=== PATIENT | female | born 1975 | race Caucasian/White ===

== ENCOUNTER 2016-05-28 04:56 | Emergency (ER) | payer MEDICAID ==
[~2016-05-28] VITALS: Ht 170.2 cm; Wt 81.8 kg
[~2016-05-28 04:56] MED LIST: ALPRAZOLAM0.25 MG PO; AMOXICILLIN 50500 MG PO; AMOXICILLIN500 MG PO; ATOMOXETINE; BCP TD; CEFTIN250 M1 PO; CHERATUSSIN AC120 ML PO; CIPRO 500MG TA500 MG PO; CLINDAMYCIN HC300 MG PO; CLINDAMYCIN300 MG PO; COMPAZINE 110 MG/TAB PO; CONCERTA18 MG PO; DEPO PROVER150 MG/ML IM; DILAUDID 2MG TAB2 MG PO; DILAUDID 4MG TAB4 MG PO; DOXYCYCLINE 10100 MG PO; FLEXERIL; FLEXERIL 1010 MG/TAB PO; HYDROCODONE/APAP PO; LAMICTAL 100MG100 MG PO; LAMICTAL CD25 MG PO; LAMICTAL25 MG PO; LEVAQUIN 5500 MG/TAB PO; LEVAQUIN 750MG750 M1 PO; LISDEXAMFETAMINE; LORTAB; LORTAB 10/500 51 TAB PO; LORTAB 7.5/5001 TAB PO; MAGIC MOUTH PO; METRONIDAZOLE500 MG PO; MOTRIN 400400 MG/TAB PO; MOTRIN 800800 MG/TAB PO; MS CONTIN 330 MG/TAB PO; MS CONTIN30 MG PO; NO HOME MEDICATIONS; NORCO 325 MG-51 TAB PO; PEN-VEE K500 MG PO; PERCOCET 5/321 UDTAB PO; PERIDEX 480 ML480 ML PO; PHENERGAN 25 TA25 MG PO; PHENERGAN W/CO120 ML PO; PREDNISONE20 MG PO; PRENATAL1 TA3; PYRIDIUM200 M1 PO; RITALIN 20M20 MG/TAB PO; SEROQUEL; SEROQUEL25 MG PO; SERTRALINE; TIZANIDINE HCL4 MG PO; TOPAMAX100 MG PO; TOPIRAMATE; TOPIRAMATE PO; TREXIMET; TRIAZOLAM; TYLENOL 500MG500 MG PO; ULTRAM 50MG TAB50 MG; ULTRAM 50MG TAB50 MG PO; ULTRAM50 MG PO; VYVANCE; WELLBUTRIN XL300 M1 PO; XANAX .25M0.25 MG/TA PO; XANAX0.25 MG PO; ZANAFLEX 4MG TAB4 MG PO; ZOFRAN 4MG T4 MG/TAB PO; ZOLOFT 100MG100 MG PO; antiinflammatory
[2016-05-28] MEDS ORDERED: ULTRAM 50MG TAB50 MG PO (05:29)
[2016-05-28 06:21] VITALS: BP 115/80; PULSE 72; TEMP 98.1
[2016-10-30] MEDS ORDERED: PREDNISONE20 MG PO (07:08)
== END 2016-05-28 06:27 | disposition home or self-care (01) ==
LOC: COL.ER 04:56
DX: J06.9 Acute upper respiratory infection, unspecified (principal)
CPT/HCPCS: J1885

== ENCOUNTER 2016-06-15 18:03 | Emergency (ER) | payer MEDICAID ==
[~2016-06-15] VITALS: Ht 170.2 cm; Wt 79.1 kg
[2016-06-15 18:06] VITALS: BP 133/95; TEMP 97.9
[2016-06-15] MEDS ORDERED: NORCO 325 MG-51 TAB PO (19:20)
[2016-06-15] MEDS ORDERED: FLEXERIL 1010 MG/TAB PO (19:20)
[2016-06-15 19:31] VITALS: PULSE 94
[2016-10-30] MEDS ORDERED: PREDNISONE20 MG PO (07:08)
== END 2016-06-15 19:32 | disposition home or self-care (01) ==
LOC: COL.ER 18:03
DX: S39.012A Strain of muscle, fascia and tendon of lower back, initial encounter (principal); X50.0XXA Overexertion from strenuous movement or load, initial encounter; M62.830 Muscle spasm of back
CPT/HCPCS: J3360

== ENCOUNTER → 2016-10-30 | Emergency (ER) | payer MEDICAID ==
[~2016-10-30] VITALS: Ht 170.2 cm; Wt 80.0 kg
[2016-10-30 06:29] VITALS: BP 124/74; PULSE 83; TEMP 97.5
== END ==
LOC: COL.ER 06:27
DX: G56.03 Carpal tunnel syndrome, bilateral upper limbs (principal)
CPT/HCPCS: J7512

== ENCOUNTER 2017-01-19 20:15 | Observation (INO) | payer MEDICAID ==
[~2017-01-19] VITALS: Ht 165.1 cm; Wt 77.3 kg
[2017-01-20 14:24] VITALS: BP 92/58; PULSE 89; TEMP 98.4
== END 2017-01-20 15:08 | disposition psychiatric hospital, planned readmission (93) ==
LOC: COL.ER 20:15 → MEDICAL 01-20 02:10
DX: F15.20 Other stimulant dependence, uncomplicated (principal); F90.9 Attention-deficit hyperactivity disorder, unspecified type; F31.9 Bipolar disorder, unspecified; N39.0 Urinary tract infection, site not specified
CPT/HCPCS: G0378

== ENCOUNTER 2017-04-03 09:27 | Emergency (ER) | payer MEDICAID ==
[~2017-04-03] VITALS: Ht 170.2 cm; Wt 79.5 kg
[2017-04-03 09:29] VITALS: BP 119/70; TEMP 97.6
[2017-04-03] MEDS ORDERED: WELLBUTRIN XL300 M1 PO (09:34)
[2017-04-03 10:56] VITALS: PULSE 83
[2017-04-03] MEDS ORDERED: ZOFRAN ODT4 MG PO (10:59)
== END 2017-04-03 10:58 | disposition home or self-care (01) ==
LOC: COL.ER 09:27
DX: S09.90XA Unspecified injury of head, initial encounter (principal); S16.1XXA Strain of muscle, fascia and tendon at neck level, initial encounter; G43.909 Migraine, unspecified, not intractable, without status migrainosus; F41.9 Anxiety disorder, unspecified; F31.9 Bipolar disorder, unspecified; F90.9 Attention-deficit hyperactivity disorder, unspecified type; F15.10 Other stimulant abuse, uncomplicated; Y04.2XXA Assault by strike against or bumped into by another person, initial encounter
CPT/HCPCS: J2550

== ENCOUNTER 2017-06-14 19:25 | Emergency (ER) | payer MEDICAID ==
[~2017-06-14] VITALS: Ht 170.2 cm; Wt 81.8 kg
[~2017-06-14 19:25] MED LIST changes: +ZOFRAN ODT4 MG PO
[2017-06-14 19:31] VITALS: BP 149/85; TEMP 98
[2017-06-14] MEDS ORDERED: BACTRIM DS 8001 TAB PO (20:54)
[2017-06-14] MEDS ORDERED: CEPHALEXIN500 M1 PO (20:54)
[2017-06-14 21:50] VITALS: PULSE 96
== END 2017-06-14 21:48 | disposition home or self-care (01) ==
LOC: COL.ER 19:25
DX: L03.114 Cellulitis of left upper limb (principal); F15.90 Other stimulant use, unspecified, uncomplicated; F32.9 Major depressive disorder, single episode, unspecified; F41.9 Anxiety disorder, unspecified; F17.200 Nicotine dependence, unspecified, uncomplicated

== ENCOUNTER 2017-07-02 09:24 | Emergency (ER) | payer MEDICAID ==
[~2017-07-02] VITALS: Ht 170.2 cm; Wt 77.3 kg
[~2017-07-02 09:24] MED LIST changes: +BACTRIM DS 8001 TAB PO; +CEPHALEXIN500 M1 PO
[2017-07-02 10:00] VITALS: BP 126/68; TEMP 97.5
[2017-07-02] MEDS ORDERED: PROAIR HFA0.09 MG/AC IH (11:54)
[2017-07-02 12:14] VITALS: PULSE 98
== END 2017-07-02 12:14 | disposition home or self-care (01) ==
LOC: COL.ER 09:24
DX: J98.8 Other specified respiratory disorders (principal); Z88.8 Allergy status to other drugs, medicaments and biological substances; Z98.818 Other dental procedure status

== ENCOUNTER → 2017-07-11 | Outpatient (CLI) | payer MEDICAID ==
[~2017-07-11] MED LIST changes: +PROAIR HFA0.09 MG/AC IH
== END ==
LOC: MC.RAD 06-09 07:40
DX: N63.21 Unspecified lump in the left breast, upper outer quadrant (principal)

== ENCOUNTER 2017-10-08 02:35 | Emergency (ER) | payer MEDICAID ==
[~2017-10-08] VITALS: Ht 170.2 cm; Wt 81.8 kg
[2017-10-08 02:38] VITALS: TEMP 98.2
[2017-10-08 03:06] LABS: COLLECTION METHOD CLEAN CATCH
[2017-10-08 03:11] LABS: BASO % 0.5 % (0.0-2.0); EOS # 0.2 (0.0-0.7); EOS % 2.9 % (0-4.0); GRAN # 3.3 (1.4-6.5); GRAN % 59.5 % (42.2-75.2); HEMOGLOBIN 12.2 g/dl (12.5-16.0); LYMPH # 1.7 (1.2-3.4); LYMPH % 30.1 % (20.0-51.0); MEAN CELL VOLUME 91 fl (80.0-100.0); MEAN CORPUSCULAR HEMOGLOBIN 30 pg (27.0-31.0); MEAN CORPUSCULAR HGB CONC 33 g/dl (33.0-37.0); MEAN PLATELET VOLUME 9.2 fl (7.4-10.4); MONO # 0.4 (0.1-0.6); MONO % 6.6 % (1.7-9.3); PLATELET COUNT 300 K/mm3 (130-400); RED BLOOD COUNT 4.09 M/mm3 (4.10-5.30); REDCELL DISTRIBUTION WIDTH-CV 12.6 % (11.5-14.5)
[2017-10-08 03:14] LABS: MUCOUS Present /lpf; PH 5 (5-8); SQUAMOUS EPITHELIAL 0-2 /hpf; URINE APPEARANCE Hazy; URINE BACTERIA None Seen /hpf; URINE BILIRUBIN Negative (NEGATIVE); URINE BLOOD Negative (NEGATIVE); URINE COLOR Yellow; URINE GLUCOSE Negative (NEGATIVE); URINE KETONE Negative (NEGATIVE); URINE LEUKOCYTE ESTERASE Trace (NEGATIVE); URINE NITRATE Negative (NEGATIVE); URINE PROTEIN(semi-quant) Negative (NEGATIVE); URINE UROBILINOGEN >=4.0 mg/dL (NEGATIVE)
[2017-10-08] MEDS ORDERED: AMBIEN 10MG10 MG PO (03:22)
[2017-10-08] MEDS ORDERED: WELLBUTRIN XL150 MG PO (03:22)
[2017-10-08 03:23] LABS: ALBUMIN 4.1 gm/dL (3.5-5.0); BILIRUBIN,TOTAL 0.8 mg/dL (0.0-1.0); C-REACTIVE PROTEIN 0.6 mg/dL (0.0-0.9); CREATININE, serum 0.77 mg/dL (0.52-1.25); POTASSIUM 3.6 mmol/L (3.4-5.0); TOTAL PROTEIN 7.1 gm/dL (6.4-8.2)
[2017-10-08] MEDS ORDERED: REVIA 50MG TABL50 MG PO (03:23)
[2017-10-08] MEDS ORDERED: LATUDA40 MG PO (03:23)
[2017-10-08] MEDS ORDERED: PHENERGAN 25 TA25 MG PO (05:06)
[2017-10-08 05:25] VITALS: BP 112/69; PULSE 81
== END 2017-10-08 05:25 | disposition home or self-care (01) ==
LOC: COL.ER 02:35
PROVIDERS: Emergency Medicine
DX: G43.909 Migraine, unspecified, not intractable, without status migrainosus (principal)
CPT/HCPCS: J0780; J1200; J1885; J7030

== ENCOUNTER 2018-01-06 14:13 | Emergency (ER) | payer MEDICAID ==
[~2018-01-06] VITALS: Ht 170.2 cm; Wt 90.9 kg
[~2018-01-06 14:13] MED LIST changes: +AMBIEN 10MG10 MG PO; +LATUDA40 MG PO; +REVIA 50MG TABL50 MG PO; +WELLBUTRIN XL150 MG PO
[2018-01-06 14:18] VITALS: BP 135/82; PULSE 100; TEMP 97.6
[2018-01-06 14:31] LABS: COLLECTION METHOD CLEAN CATCH
[2018-01-06 14:45] LABS: BUDDING YEAST Present /hpf; MUCOUS Present /lpf; PH 6 (5-8); URINE APPEARANCE Cloudy; URINE BACTERIA Rare /hpf; URINE BILIRUBIN Negative (NEGATIVE); URINE BLOOD 1+ (NEGATIVE); URINE COLOR Yellow; URINE GLUCOSE Negative (NEGATIVE); URINE KETONE Negative (NEGATIVE); URINE LEUKOCYTE ESTERASE 3+ (NEGATIVE); URINE NITRATE Positive (NEGATIVE); URINE PROTEIN(semi-quant) Negative (NEGATIVE)
[2018-01-06] MEDS ORDERED: CEPHALEXIN500 M1 PO (14:53)
[2018-01-06] MEDS ORDERED: DIFLUCAN200 MG PO (14:53)
[2018-01-06] MEDS ORDERED: PYRIDIUM200 M1 PO (14:53)
== END 2018-01-06 15:00 | disposition home or self-care (01) ==
LOC: COL.ER 14:13
PROVIDERS: Physician Assistant
DX: N39.0 Urinary tract infection, site not specified (principal); Z90.710 Acquired absence of both cervix and uterus

== ENCOUNTER 2018-03-07 11:59 | Emergency (ER) | payer MEDICAID ==
[~2018-03-07] VITALS: Ht 170.2 cm; Wt 84.5 kg
[~2018-03-07 11:59] MED LIST changes: +DIFLUCAN200 MG PO
[2018-03-07 12:19] VITALS: TEMP 98.4
[2018-03-07 14:02] LABS: BASO % 0.3 % (0.0-2.0); EOS # 0.1 (0.0-0.7); GRAN # 3.9 (1.4-6.5); GRAN % 61.8 % (42.2-75.2); HEMATOCRIT 40.4 % (37.0-47.0); HEMOGLOBIN 13.7 g/dl (12.5-16.0); LYMPH # 1.9 (1.2-3.4); MEAN CELL VOLUME 90 fl (80.0-100.0); MEAN CORPUSCULAR HEMOGLOBIN 31 pg (27.0-31.0); MEAN CORPUSCULAR HGB CONC 34 g/dl (33.0-37.0); MEAN PLATELET VOLUME 9.2 fl (7.4-10.4); MONO # 0.4 (0.1-0.6); MONO % 5.7 % (1.7-9.3); PLATELET COUNT 298 K/mm3 (130-400); RED BLOOD COUNT 4.49 M/mm3 (4.10-5.30); REDCELL DISTRIBUTION WIDTH-CV 12.4 % (11.5-14.5)
[2018-03-07 14:13] LABS: ALBUMIN 4.4 gm/dL (3.5-5.0); BILIRUBIN,TOTAL 1.1 mg/dL (0.0-1.0); CALCIUM 9.4 mg/dL (8.4-10.2); CREATININE, serum 0.83 mg/dL (0.52-1.25); POTASSIUM 3.9 mmol/L (3.4-5.0); TOTAL PROTEIN 7.7 gm/dL (6.4-8.2)
[2018-03-07 14:43] LABS: TSH w REFLEX 1.04 uIU/mL (0.465-4.680)
[2018-03-07] MEDS ORDERED: TYLENOL 500MG500 MG PO (15:28)
[2018-03-07] MEDS ORDERED: IBU800 M1 PO (15:28)
[2018-03-07 15:52] VITALS: BP 120/82; PULSE 91
== END 2018-03-07 15:50 | disposition home or self-care (01) ==
LOC: COL.ER 11:59
PROVIDERS: Emergency Medicine
DX: R20.2 Paresthesia of skin (principal); F31.9 Bipolar disorder, unspecified; Z90.710 Acquired absence of both cervix and uterus
CPT/HCPCS: J1630; J2550; J7030

== ENCOUNTER → 2018-03-22 | Outpatient (CLI) | payer MEDICAID ==
[~2018-03-22] MED LIST changes: +IBU800 M1 PO
== END ==
LOC: COL.LAB 10:32
DX: F41.9 Anxiety disorder, unspecified (principal); R61 Generalized hyperhidrosis; R20.2 Paresthesia of skin

== ENCOUNTER 2018-03-27 01:34 | Emergency (ER) | payer MEDICAID ==
[~2018-03-27] VITALS: Ht 170.2 cm; Wt 90.9 kg
[2018-03-27 01:49] VITALS: BP 139/94; TEMP 97.9
[2018-03-27] MEDS ORDERED: AMOXICILLIN 8751 TAB PO (02:23)
[2018-03-27 02:36] VITALS: PULSE 96
== END 2018-03-27 02:47 | disposition home or self-care (01) ==
LOC: COL.ER 01:34
DX: S02.5XXA Fracture of tooth (traumatic), initial encounter for closed fracture (principal); Z79.1 Long term (current) use of non-steroidal anti-inflammatories (NSAID)

== ENCOUNTER 2018-06-10 17:51 | Emergency (ER) | payer SELFPAY ==
[~2018-06-10] VITALS: Ht 170.2 cm; Wt 84.1 kg
[~2018-06-10 17:51] MED LIST changes: +AMOXICILLIN 8751 TAB PO
[2018-06-10 18:10] VITALS: TEMP 98
[2018-06-10] MEDS ORDERED: PRINZIDE 12.5 M1 TAB PO (19:11)
[2018-06-10] MEDS ORDERED: TOPAMAX50 MG PO (19:12)
[2018-06-10] MEDS ORDERED: VITAMIN B12 681 TAB PO (19:12)
[2018-06-10] MEDS ORDERED: ZITHROMAX 250M250 MG PO (20:21)
[2018-06-10] MEDS ORDERED: PREDNISONE20 MG PO (20:21)
[2018-06-10 21:02] VITALS: BP 117/78; PULSE 81
== END 2018-06-10 21:03 | disposition home or self-care (01) ==
LOC: COL.ER 17:51
DX: J40 Bronchitis, not specified as acute or chronic (principal); I10 Essential (primary) hypertension; F31.9 Bipolar disorder, unspecified; Z98.890 Other specified postprocedural states; Z90.710 Acquired absence of both cervix and uterus; Z98.51 Tubal ligation status
CPT/HCPCS: J1885; J7030; J7512

== ENCOUNTER 2018-09-25 18:40 | Emergency (ER) | payer SELFPAY ==
[~2018-09-25] VITALS: Ht 170.2 cm; Wt 92.7 kg
[~2018-09-25 18:40] MED LIST changes: +PRINZIDE 12.5 M1 TAB PO; +TOPAMAX50 MG PO; +VITAMIN B12 681 TAB PO; +ZITHROMAX 250M250 MG PO
[2018-09-25 18:54] VITALS: TEMP 97.3
[2018-09-25] MEDS ORDERED: NORVASC2.5 MG PO (21:41)
[2018-09-25 21:50] VITALS: BP 134/87; PULSE 94
== END 2018-09-25 21:50 | disposition home or self-care (01) ==
LOC: COL.ER 18:40
DX: I73.00 Raynaud's syndrome without gangrene (principal); F32.9 Major depressive disorder, single episode, unspecified; F17.210 Nicotine dependence, cigarettes, uncomplicated

== ENCOUNTER → 2018-10-09 | Outpatient (CLI) | payer SELFPAY ==
[~2018-10-09] MED LIST changes: +NORVASC2.5 MG PO
[2018-10-09 17:33] LABS: COLLECTION METHOD CLEAN CATCH
[2018-10-09 17:38] LABS: BASO % 0.4 % (0.0-2.0); EOS # 0.2 (0.0-0.7); EOS % 1.8 % (0-4.0); GRAN # 5.7 (1.4-6.5); GRAN % 68.8 % (42.2-75.2); HEMATOCRIT 37.2 % (37.0-47.0); HEMOGLOBIN 12.4 g/dl (12.5-16.0); LYMPH # 1.8 (1.2-3.4); LYMPH % 22.3 % (20.0-51.0); MEAN CELL VOLUME 92 fl (80.0-100.0); MEAN CORPUSCULAR HEMOGLOBIN 31 pg (27.0-31.0); MEAN CORPUSCULAR HGB CONC 33 g/dl (33.0-37.0); MEAN PLATELET VOLUME 8.9 fl (7.4-10.4); MONO # 0.5 (0.1-0.6); MONO % 6.3 % (1.7-9.3); PLATELET COUNT 305 K/mm3 (130-400); RED BLOOD COUNT 4.05 M/mm3 (4.10-5.30); REDCELL DISTRIBUTION WIDTH-CV 12.7 % (11.5-14.5)
[2018-10-09 17:52] LABS: PH 7 (5-8); URINE APPEARANCE Hazy; URINE BACTERIA None Seen /hpf; URINE BILIRUBIN Negative (NEGATIVE); URINE BLOOD Negative (NEGATIVE); URINE COLOR Yellow; URINE GLUCOSE Negative (NEGATIVE); URINE KETONE Negative (NEGATIVE); URINE LEUKOCYTE ESTERASE 1+ (NEGATIVE); URINE NITRATE Negative (NEGATIVE); URINE PROTEIN(semi-quant) Negative (NEGATIVE); URINE RBC 0-2 /hpf; URINE UROBILINOGEN Negative (NEGATIVE); URINE WBC 0-2 /hpf
[2018-10-09 18:05] LABS: ALANINE AMINOTRANSFERASE 12 U/L (9-52); ALBUMIN 4.2 gm/dL (3.5-5.0); ALKALINE PHOSPHATASE 109 U/L (50-136); ANION GAP 9 mmol/L (7-16); AST,SGOT 22 U/L (15-37); BILIRUBIN,TOTAL 0.7 mg/dL (0.0-1.0); BLOOD UREA NITROGEN 10 mg/dL (7-17); CALCIUM 8.8 mg/dL (8.4-10.2); CARBON DIOXIDE 28 mmol/L (22-30); CHLORIDE 103 mmol/L (98-107); CREATININE, serum 0.73 (0.52-1.25); GLUCOSE 81 mg/dL (74-106); POTASSIUM 3.7 mmol/L (3.4-5.0); SODIUM 140 mmol/L (137-145); TOTAL PROTEIN 7.4 gm/dL (6.4-8.2)
[2018-10-09 18:24] LABS: TROPONIN-I < 0.012 ng/mL (0.000-0.035)
== END ==
LOC: COL.LAB 16:46
PROVIDERS: Registered Nurse
DX: F15.10 Other stimulant abuse, uncomplicated (principal); R07.9 Chest pain, unspecified; R42 Dizziness and giddiness; F41.9 Anxiety disorder, unspecified; F19.10 Other psychoactive substance abuse, uncomplicated; R20.2 Paresthesia of skin

== ENCOUNTER 2018-10-12 12:37 | Emergency (ER) | payer SELFPAY ==
[~2018-10-12] VITALS: Ht 170.2 cm; Wt 93.2 kg
[2018-10-12 13:43] LABS: BASO % 0.3 % (0.0-2.0); EOS # 0.2 (0.0-0.7); EOS % 2.4 % (0-4.0); GRAN % 71.5 % (42.2-75.2); HEMATOCRIT 40.2 % (37.0-47.0); HEMOGLOBIN 13.4 g/dl (12.5-16.0); LYMPH # 1.4 (1.2-3.4); LYMPH % 20.5 % (20.0-51.0); MEAN CELL VOLUME 92 fl (80.0-100.0); MEAN CORPUSCULAR HEMOGLOBIN 31 pg (27.0-31.0); MEAN CORPUSCULAR HGB CONC 33 g/dl (33.0-37.0); MEAN PLATELET VOLUME 9.1 fl (7.4-10.4); MONO # 0.4 (0.1-0.6); PLATELET COUNT 309 K/mm3 (130-400); RED BLOOD COUNT 4.39 M/mm3 (4.10-5.30); REDCELL DISTRIBUTION WIDTH-CV 12.4 % (11.5-14.5)
[2018-10-12 13:55] LABS: ALANINE AMINOTRANSFERASE 10 U/L (9-52); ALBUMIN 3.9 gm/dL (3.5-5.0); ALKALINE PHOSPHATASE 102 U/L (50-136); ANION GAP 10 mmol/L (7-16); AST,SGOT 17 U/L (15-37); BILIRUBIN,TOTAL 0.5 mg/dL (0.0-1.0); BLOOD UREA NITROGEN 10 mg/dL (7-17); CALCIUM 8.6 mg/dL (8.4-10.2); CARBON DIOXIDE 24 mmol/L (22-30); CHLORIDE 105 mmol/L (98-107); CREATININE, serum 0.63 (0.52-1.25); GLUCOSE 117 mg/dL (74-106); POTASSIUM 3.8 mmol/L (3.4-5.0); SODIUM 139 mmol/L (137-145); TOTAL PROTEIN 7.1 gm/dL (6.4-8.2)
[2018-10-12] MEDS ORDERED: ELAVIL150 MG PO (13:55)
[2018-10-12] MEDS ORDERED: HORIZANT300 MG PO (13:55)
[2018-10-12 14:11] VITALS: TEMP 97.6
[2018-10-12 14:15] LABS: ALCOHOL(ethanol),MEDICAL < 10 mg/dL; TROPONIN-I < 0.012 ng/mL (0.000-0.035)
[2018-10-12 14:23] LABS: COLLECTION METHOD CLEAN CATCH
[2018-10-12 14:33] LABS: MUCOUS Present /lpf; PH 6 (5-8); SQUAMOUS EPITHELIAL >50 /hpf; URINE APPEARANCE Cloudy; URINE BACTERIA Rare /hpf; URINE BILIRUBIN Negative (NEGATIVE); URINE BLOOD Negative (NEGATIVE); URINE COLOR Yellow; URINE GLUCOSE Negative (NEGATIVE); URINE KETONE Negative (NEGATIVE); URINE LEUKOCYTE ESTERASE Negative (NEGATIVE); URINE NITRATE Negative (NEGATIVE); URINE PROTEIN(semi-quant) Negative (NEGATIVE); URINE RBC 0-2 /hpf; URINE UROBILINOGEN Negative (NEGATIVE)
[2018-10-12 14:43] LABS: TRICYCLIC ANTIDEPRESS URINE POSITIVE
[2018-10-12 17:18] VITALS: BP 107/64; PULSE 79
== END 2018-10-12 17:18 | disposition home or self-care (01) ==
LOC: COL.ER 12:37
PROVIDERS: Emergency Medicine
DX: R42 Dizziness and giddiness (principal); F15.90 Other stimulant use, unspecified, uncomplicated; Z90.49 Acquired absence of other specified parts of digestive tract; Z90.710 Acquired absence of both cervix and uterus; Z79.52 Long term (current) use of systemic steroids
CPT/HCPCS: J2060; J2405; J7030

== ENCOUNTER 2018-12-06 00:30 | Emergency (ER) | payer SELFPAY ==
[~2018-12-06] VITALS: Ht 170.2 cm; Wt 90.9 kg
[~2018-12-06 00:30] MED LIST changes: +ELAVIL150 MG PO; +HORIZANT300 MG PO
[2018-12-06 00:36] VITALS: BP 139/82; TEMP 98.4
[2018-12-06 03:42] LABS: URIC ACID 4.9 mg/dL (2.5-6.2)
[2018-12-06 03:43] LABS: C-REACTIVE PROTEIN < 0.5 mg/dL (0.0-0.9)
[2018-12-06 03:53] LABS: ERYTHROCYTE SEDIMENTATION RATE 1 mm/hr (0-20)
[2018-12-06 04:06] LABS: ALBUMIN 4.4 gm/dL (3.5-5.0); BILIRUBIN,TOTAL 0.9 mg/dL (0.0-1.0); CALCIUM 9.6 mg/dL (8.4-10.2); CREATININE, serum 0.63 (0.52-1.25); TOTAL PROTEIN 7.5 gm/dL (6.4-8.2)
[2018-12-06] MEDS ORDERED: MOBIC 7.5MG7.5 MG PO (04:42)
[2018-12-06 05:35] LABS: HEMOGLOBIN 12.4 g/dl (12.5-16.0); MEAN CORPUSCULAR HEMOGLOBIN 30 pg (27.0-31.0); RED BLOOD COUNT 4.09 M/mm3 (4.10-5.30)
[2018-12-06 05:36] LABS: BASO % 0.2 % (0.0-2.0); EOS # 0.2 (0.0-0.7); EOS % 2.8 % (0-4.0); GRAN # 5.9 (1.4-6.5); GRAN % 67.8 % (42.2-75.2); HEMATOCRIT 36.7 % (37.0-47.0); LYMPH # 1.9 (1.2-3.4); LYMPH % 22.2 % (20.0-51.0); MEAN CELL VOLUME 90 fl (80.0-100.0); MEAN CORPUSCULAR HGB CONC 34 g/dl (33.0-37.0); MEAN PLATELET VOLUME 10.7 fl (7.4-10.4); MONO # 0.6 (0.1-0.6); MONO % 6.3 % (1.7-9.3); PLATELET COUNT 236 K/mm3 (130-400); REDCELL DISTRIBUTION WIDTH-CV 13.1 % (11.5-14.5)
[2018-12-06 06:06] VITALS: PULSE 86
== END 2018-12-06 06:00 | disposition home or self-care (01) ==
LOC: COL.ER 00:30
PROVIDERS: Emergency Medicine
DX: S90.32XA Contusion of left foot, initial encounter (principal); F31.9 Bipolar disorder, unspecified; X58.XXXA Exposure to other specified factors, initial encounter

== ENCOUNTER 2019-01-22 07:19 | Emergency (ER) | payer SELFPAY ==
[~2019-01-22] VITALS: Ht 170.2 cm; Wt 93.2 kg
[~2019-01-22 07:19] MED LIST changes: +MOBIC 7.5MG7.5 MG PO
[2019-01-22 07:36] VITALS: TEMP 97.8
[2019-01-22 10:02] VITALS: BP 102/61; PULSE 64
== END 2019-01-22 10:02 | disposition home or self-care (01) ==
LOC: COL.ER 07:19
DX: R51 Headache (principal)
CPT/HCPCS: J0780; J1200; J1885; J7030

== ENCOUNTER 2019-02-13 22:00 | Emergency (ER) | payer SELFPAY ==
[~2019-02-13] VITALS: Ht 167.6 cm; Wt 93.0 kg
[2019-02-13 22:03] VITALS: BP 123/73; TEMP 98.9
[2019-02-13 22:55] LABS: BASO % 0.4 % (0.0-2.0); EOS # 0.3 (0.0-0.7); GRAN # 5.9 (1.4-6.5); GRAN % 61.7 % (42.2-75.2); HEMOGLOBIN 12.6 g/dl (12.5-16.0); LYMPH # 2.8 (1.2-3.4); MEAN CELL VOLUME 92 fl (80.0-100.0); MEAN CORPUSCULAR HEMOGLOBIN 31 pg (27.0-31.0); MEAN CORPUSCULAR HGB CONC 33 g/dl (33.0-37.0); MEAN PLATELET VOLUME 9.4 fl (7.4-10.4); MONO # 0.6 (0.1-0.6); MONO % 5.7 % (1.7-9.3); PLATELET COUNT 287 K/mm3 (130-400); RED BLOOD COUNT 4.12 M/mm3 (4.10-5.30); REDCELL DISTRIBUTION WIDTH-CV 12.7 % (11.5-14.5)
[2019-02-13 23:07] LABS: ALBUMIN 4.2 gm/dL (3.5-5.0); BILIRUBIN,TOTAL 0.7 mg/dL (0.0-1.0); C-REACTIVE PROTEIN 0.6 mg/dL (0.0-0.9); CALCIUM 9.1 mg/dL (8.4-10.2); CREATININE, serum 0.65 (0.52-1.25); POTASSIUM 4.2 mmol/L (3.4-5.0); TOTAL PROTEIN 7.2 gm/dL (6.4-8.2)
[2019-02-13] MEDS ORDERED: DOXYCYCLINE 10100 MG PO (23:36)
[2019-02-13 23:51] VITALS: PULSE 80
== END 2019-02-13 23:51 | disposition home or self-care (01) ==
LOC: COL.ER 22:00
PROVIDERS: Nurse Practitioner
DX: M79.622 Pain in left upper arm (principal); M79.621 Pain in right upper arm; F31.9 Bipolar disorder, unspecified; G43.909 Migraine, unspecified, not intractable, without status migrainosus; F90.9 Attention-deficit hyperactivity disorder, unspecified type; F41.9 Anxiety disorder, unspecified; I10 Essential (primary) hypertension; Z98.51 Tubal ligation status; Z90.89 Acquired absence of other organs; Z90.710 Acquired absence of both cervix and uterus
CPT/HCPCS: J1885

== ENCOUNTER 2019-04-04 14:33 | Emergency (ER) | payer OTHER ==
[~2019-04-04] VITALS: Ht 167.6 cm; Wt 90.9 kg
[2019-04-04 14:56] VITALS: TEMP 99.4
[2019-04-04 17:27] VITALS: BP 127/88; PULSE 94
== END 2019-04-04 17:28 | disposition home or self-care (01) ==
LOC: COL.ER 14:33
DX: S10.93XA Contusion of unspecified part of neck, initial encounter (principal); T71.9XXA Asphyxiation due to unspecified cause, initial encounter; F31.9 Bipolar disorder, unspecified; F43.10 Post-traumatic stress disorder, unspecified; G43.909 Migraine, unspecified, not intractable, without status migrainosus; F17.210 Nicotine dependence, cigarettes, uncomplicated
CPT/HCPCS: J1885

== ENCOUNTER 2019-11-02 21:39 | Emergency (ER) | payer SELFPAY ==
[~2019-11-02] VITALS: Ht 170.2 cm; Wt 93.2 kg
[~2019-11-02 21:39] MED LIST changes: +NORCO 325 MG-7.1 TAB PO
[2019-11-02 21:40] VITALS: TEMP 97.4
[2019-11-03 00:41] LABS: BASO % 0.4 % (0.0-2.0); EOS # 0.2 (0.0-0.7); EOS % 2.1 % (0-4.0); GRAN # 4.6 (1.4-6.5); GRAN % 57.7 % (42.2-75.2); HEMATOCRIT 40.2 % (37.0-47.0); HEMOGLOBIN 13.2 g/dl (12.5-16.0); LYMPH # 2.6 (1.2-3.4); MEAN CELL VOLUME 90 fl (80.0-100.0); MEAN CORPUSCULAR HEMOGLOBIN 30 pg (27.0-31.0); MEAN CORPUSCULAR HGB CONC 33 g/dl (33.0-37.0); MEAN PLATELET VOLUME 9.6 fl (7.4-10.4); MONO # 0.5 (0.1-0.6); MONO % 6.6 % (1.7-9.3); PLATELET COUNT 318 K/mm3 (130-400); RED BLOOD COUNT 4.47 M/mm3 (4.10-5.30); REDCELL DISTRIBUTION WIDTH-CV 12.8 % (11.5-14.5)
[2019-11-03 00:55] LABS: ALBUMIN 4.5 gm/dL (3.5-5.0); BILIRUBIN,TOTAL 0.9 mg/dL (0.0-1.0); CALCIUM 9.3 mg/dL (8.4-10.2); CREATININE, serum 0.84 (0.52-1.25); PHOSPHOROUS 4.1 mg/dL (2.5-4.5); POTASSIUM 3.9 mmol/L (3.4-5.0); TOTAL PROTEIN 8.1 gm/dL (6.4-8.2)
[2019-11-03 01:24] LABS: THYROID STIMULATING HORMONE 2.97 uIU/mL (0.465-4.680)
[2019-11-03] MEDS ORDERED: CYMBALTA 30MG30 MG PO (01:55)
[2019-11-03 02:05] VITALS: BP 117/81; PULSE 90
== END 2019-11-03 02:05 | disposition home or self-care (01) ==
LOC: COL.ER 21:39
PROVIDERS: Emergency Medicine
DX: G62.9 Polyneuropathy, unspecified (principal); E11.9 Type 2 diabetes mellitus without complications; Z98.51 Tubal ligation status; Z79.52 Long term (current) use of systemic steroids; Z79.84 Long term (current) use of oral hypoglycemic drugs

== ENCOUNTER 2019-12-29 17:12 | Emergency (ER) | payer SELFPAY ==
[~2019-12-29] VITALS: Ht 170.2 cm; Wt 90.5 kg
[~2019-12-29 17:12] MED LIST changes: +CYMBALTA 30MG30 MG PO
[2019-12-29 17:25] VITALS: TEMP 98.3
[2019-12-29 18:08] LABS: BASO % 0.4 % (0.0-2.0); EOS # 0.2 (0.0-0.7); EOS % 2.1 % (0-4.0); GRAN # 4.7 (1.4-6.5); GRAN % 62.8 % (42.2-75.2); HEMOGLOBIN 12.8 g/dl (12.5-16.0); LYMPH # 2.2 (1.2-3.4); LYMPH % 28.7 % (20.0-51.0); MEAN CELL VOLUME 91 fl (80.0-100.0); MEAN CORPUSCULAR HEMOGLOBIN 31 pg (27.0-31.0); MEAN CORPUSCULAR HGB CONC 34 g/dl (33.0-37.0); MEAN PLATELET VOLUME 9.4 fl (7.4-10.4); MONO # 0.4 (0.1-0.6); MONO % 5.9 % (1.7-9.3); PLATELET COUNT 344 K/mm3 (130-400); RED BLOOD COUNT 4.16 M/mm3 (4.10-5.30); REDCELL DISTRIBUTION WIDTH-CV 12.9 % (11.5-14.5)
[2019-12-29 18:13] LABS: INR 1.1 (0.8-3.0); PROTHROMBIN TIME 11.9 SECONDS (9.7-12.8)
[2019-12-29 18:14] LABS: COLLECTION METHOD CLEAN CATCH
[2019-12-29 18:16] LABS: PARTIAL THROMBOPLASTIN TIME 35.4 SECONDS (26.0-37.0)
[2019-12-29 18:21] LABS: ALBUMIN 4.7 gm/dL (3.5-5.0); C-REACTIVE PROTEIN 0.6 mg/dL (0.0-0.9); CALCIUM 9.8 mg/dL (8.4-10.2); CREATININE, serum 0.79 (0.52-1.25); POTASSIUM 3.8 mmol/L (3.4-5.0); TOTAL PROTEIN 8.3 gm/dL (6.4-8.2)
[2019-12-29 18:26] LABS: BUDDING YEAST Present /hpf; PH 8 (5-8); URINE APPEARANCE Cloudy; URINE BACTERIA Occasional /hpf; URINE BILIRUBIN Negative (NEGATIVE); URINE BLOOD 1+ (NEGATIVE); URINE COLOR Yellow; URINE GLUCOSE Negative (NEGATIVE); URINE KETONE Negative (NEGATIVE); URINE LEUKOCYTE ESTERASE Negative (NEGATIVE); URINE NITRATE Negative (NEGATIVE); URINE PROTEIN(semi-quant) Negative (NEGATIVE); URINE RBC 0-2 /hpf; URINE UROBILINOGEN Negative (NEGATIVE)
[2019-12-29] MEDS ORDERED: FLEXERIL 1010 MG/TAB PO (19:48)
[2019-12-29 21:10] VITALS: BP 148/102; PULSE 82
== END 2019-12-29 21:10 | disposition home or self-care (01) ==
LOC: COL.ER 17:12
PROVIDERS: Emergency Medicine
DX: M79.604 Pain in right leg (principal); M79.605 Pain in left leg; R25.2 Cramp and spasm; I10 Essential (primary) hypertension; Z88.8 Allergy status to other drugs, medicaments and biological substances

== ENCOUNTER 2020-01-01 01:56 | Emergency (ER) | payer SELFPAY ==
[~2020-01-01] VITALS: Ht 170.2 cm; Wt 90.9 kg
[2020-01-01 02:14] VITALS: TEMP 97.9
[2020-01-01 03:39] LABS: BASO # 0.1 (0.0-0.2); BASO % 0.6 % (0.0-2.0); EOS # 0.4 (0.0-0.7); EOS % 4.7 % (0-4.0); GRAN # 5.7 (1.4-6.5); GRAN % 66.8 % (42.2-75.2); HEMATOCRIT 37.3 % (37.0-47.0); HEMOGLOBIN 12.8 g/dl (12.5-16.0); LYMPH # 1.8 (1.2-3.4); LYMPH % 20.8 % (20.0-51.0); MEAN CELL VOLUME 90 fl (80.0-100.0); MEAN CORPUSCULAR HEMOGLOBIN 31 pg (27.0-31.0); MEAN CORPUSCULAR HGB CONC 34 g/dl (33.0-37.0); MEAN PLATELET VOLUME 9.3 fl (7.4-10.4); MONO # 0.6 (0.1-0.6); MONO % 6.9 % (1.7-9.3); PLATELET COUNT 313 K/mm3 (130-400); RED BLOOD COUNT 4.13 M/mm3 (4.10-5.30)
[2020-01-01 03:47] LABS: ALBUMIN 4.3 gm/dL (3.5-5.0); BILIRUBIN,TOTAL 0.6 mg/dL (0.0-1.0); CALCIUM 9.2 mg/dL (8.4-10.2); CREATININE, serum 0.83 (0.52-1.25); POTASSIUM 3.7 mmol/L (3.4-5.0); TOTAL PROTEIN 7.6 gm/dL (6.4-8.2)
[2020-01-01] MEDS ORDERED: PHENERGAN 25 TA25 MG PO (05:38)
[2020-01-01] MEDS ORDERED: ZITHROMAX Z PA250 MG PO (05:38)
[2020-01-01 06:05] VITALS: BP 118/86; PULSE 102
== END 2020-01-01 06:05 | disposition home or self-care (01) ==
LOC: COL.ER 01:56
PROVIDERS: Emergency Medicine
DX: J06.9 Acute upper respiratory infection, unspecified (principal); E11.9 Type 2 diabetes mellitus without complications; Z20.828 Contact with and (suspected) exposure to other viral communicable diseases; Z90.710 Acquired absence of both cervix and uterus; Z88.8 Allergy status to other drugs, medicaments and biological substances; Z79.52 Long term (current) use of systemic steroids; Z79.84 Long term (current) use of oral hypoglycemic drugs

== ENCOUNTER 2020-02-19 22:42 | Emergency (ER) | payer SELFPAY ==
[~2020-02-19] VITALS: Ht 165.1 cm; Wt 95.5 kg
[~2020-02-19 22:42] MED LIST changes: +ZITHROMAX Z PA250 MG PO
[2020-02-19 22:49] VITALS: TEMP 97.5
[2020-02-20] MEDS ORDERED: BACTRIM DS 8001 TAB PO (00:12)
[2020-02-20 00:48] VITALS: BP 117/90; PULSE 104
== END 2020-02-20 00:50 | disposition home or self-care (01) ==
LOC: COL.ER 22:42
DX: R22.0 Localized swelling, mass and lump, head (principal)

== ENCOUNTER 2020-02-22 23:50 | Emergency (ER) | payer SELFPAY ==
[~2020-02-22] VITALS: Ht 167.6 cm; Wt 95.5 kg
[2020-02-23 00:01] VITALS: TEMP 97.8
[2020-02-23] MEDS ORDERED: NAPROSYN 2250 MG/TAB PO (01:07)
[2020-02-23] MEDS ORDERED: CEPHALEXIN250 M1 PO (01:07)
[2020-02-23 01:25] VITALS: BP 107/68; PULSE 73
== END 2020-02-23 01:25 | disposition home or self-care (01) ==
LOC: COL.ER 23:50
DX: L02.811 Cutaneous abscess of head [any part, except face] (principal); Z90.710 Acquired absence of both cervix and uterus; Z90.89 Acquired absence of other organs; Z88.8 Allergy status to other drugs, medicaments and biological substances; Z79.52 Long term (current) use of systemic steroids
CPT/HCPCS: J0696; J2270

== ENCOUNTER 2020-02-26 16:48 | Emergency (ER) | payer SELFPAY ==
[~2020-02-26] VITALS: Ht 167.6 cm; Wt 95.5 kg
[~2020-02-26 16:48] MED LIST changes: +CEPHALEXIN250 M1 PO; +NAPROSYN 2250 MG/TAB PO
[2020-02-26 16:55] VITALS: BP 139/89; TEMP 98.4
[2020-02-26 17:50] VITALS: PULSE 95
== END 2020-02-26 17:50 | disposition home or self-care (01) ==
LOC: COL.ER 16:48
DX: Z48.00 Encounter for change or removal of nonsurgical wound dressing (principal); Z88.1 Allergy status to other antibiotic agents; Z79.82 Long term (current) use of aspirin

== ENCOUNTER 2020-03-02 09:40 | Emergency (ER) | payer SELFPAY ==
[~2020-03-02] VITALS: Ht 170.2 cm; Wt 95.5 kg
[2020-03-02 09:43] VITALS: TEMP 98.8
[2020-03-02 11:45] VITALS: BP 118/74; PULSE 84
== END 2020-03-02 11:45 | disposition home or self-care (01) ==
LOC: COL.ER 09:40
DX: L02.811 Cutaneous abscess of head [any part, except face] (principal); G43.909 Migraine, unspecified, not intractable, without status migrainosus; Z90.89 Acquired absence of other organs; Z90.710 Acquired absence of both cervix and uterus; Z88.8 Allergy status to other drugs, medicaments and biological substances
CPT/HCPCS: J1200; J1885; J2550; J7030

== ENCOUNTER 2020-04-24 17:43 | Emergency (ER) | payer SELFPAY ==
[~2020-04-24] VITALS: Ht 170.2 cm; Wt 95.5 kg
[2020-04-24 17:51] VITALS: TEMP 98.7
[2020-04-24 18:30] VITALS: BP 120/75; PULSE 86
== END 2020-04-24 18:30 | disposition home or self-care (01) ==
LOC: COL.ER 17:43
DX: T45.0X1A Poisoning by antiallergic and antiemetic drugs, accidental (unintentional), initial encounter (principal); K06.8 Other specified disorders of gingiva and edentulous alveolar ridge; I10 Essential (primary) hypertension; Z88.8 Allergy status to other drugs, medicaments and biological substances; Z79.52 Long term (current) use of systemic steroids

== ENCOUNTER 2020-04-28 20:19 | Emergency (ER) | payer SELFPAY ==
[~2020-04-28] VITALS: Ht 170.2 cm; Wt 100.0 kg
[2020-04-28 20:24] VITALS: TEMP 97.7
[2020-04-28] MEDS ORDERED: GLUCOPHAGE1000 MG PO (20:44)
[2020-04-28 21:29] LABS: BASO % 0.5 % (0.0-2.0); EOS # 0.2 (0.0-0.7); EOS % 2.7 % (0-4.0); GRAN # 5.7 (1.4-6.5); GRAN % 66.8 % (42.2-75.2); HEMATOCRIT 38.2 % (37.0-47.0); HEMOGLOBIN 12.6 g/dl (12.5-16.0); LYMPH % 23.6 % (20.0-51.0); MEAN CELL VOLUME 90 fl (80.0-100.0); MEAN CORPUSCULAR HEMOGLOBIN 30 pg (27.0-31.0); MEAN CORPUSCULAR HGB CONC 33 g/dl (33.0-37.0); MEAN PLATELET VOLUME 9.3 fl (7.4-10.4); MONO # 0.5 (0.1-0.6); MONO % 6.3 % (1.7-9.3); PLATELET COUNT 335 K/mm3 (130-400); RED BLOOD COUNT 4.24 M/mm3 (4.10-5.30); REDCELL DISTRIBUTION WIDTH-CV 12.8 % (11.5-14.5)
[2020-04-28 21:34] LABS: ALANINE AMINOTRANSFERASE 17 U/L (4-34); ALBUMIN 4.6 gm/dL (3.5-5.0); ALKALINE PHOSPHATASE 107 U/L (50-136); ANION GAP 8 mmol/L (7-16); AST,SGOT 20 U/L (15-37); BILIRUBIN,TOTAL 0.8 mg/dL (0.0-1.0); BLOOD UREA NITROGEN 13 mg/dL (7-17); CALCIUM 9.2 mg/dL (8.4-10.2); CARBON DIOXIDE 28 mmol/L (22-30); CHLORIDE 101 mmol/L (98-107); CREATININE, serum 0.64 (0.52-1.25); GLUCOSE 93 mg/dL (74-106); LIPASE 145 U/L (23-300); POTASSIUM 3.9 mmol/L (3.4-5.0); SODIUM 138 mmol/L (137-145); TOTAL PROTEIN 7.9 gm/dL (6.4-8.2)
[2020-04-28 21:35] LABS: PROTHROMBIN TIME 11.3 SECONDS (9.7-12.8)
[2020-04-28 21:38] LABS: PARTIAL THROMBOPLASTIN TIME 31.1 SECONDS (26.0-37.0)
[2020-04-28 21:41] LABS: D-DIMER < 200.00 ng/mLDDu (200-230)
[2020-04-28 21:48] LABS: TROPONIN-I < 0.012 ng/mL (0.000-0.035)
[2020-04-29 01:20] VITALS: BP 104/62; PULSE 91
== END 2020-04-29 01:20 | disposition home or self-care (01) ==
LOC: COL.ER 20:19
PROVIDERS: Emergency Medicine
DX: R07.9 Chest pain, unspecified (principal); I10 Essential (primary) hypertension; E11.9 Type 2 diabetes mellitus without complications; Z20.822 Contact with and (suspected) exposure to COVID-19; Z91.19 Patient's noncompliance with other medical treatment and regimen; Z88.8 Allergy status to other drugs, medicaments and biological substances; Z79.84 Long term (current) use of oral hypoglycemic drugs

== ENCOUNTER 2020-08-15 01:26 | Emergency (ER) | payer MEDICAID ==
[~2020-08-15] VITALS: Ht 170.2 cm; Wt 100.0 kg
[~2020-08-15 01:26] MED LIST changes: +GLUCOPHAGE1000 MG PO
[2020-08-15 02:23] VITALS: TEMP 98.3
[2020-08-15 02:56] LABS: HEMATOCRIT 38.3 % (37.0-47.0); HEMOGLOBIN 12.8 g/dl (12.5-16.0); MEAN CELL VOLUME 90 fl (80.0-100.0); MEAN CORPUSCULAR HEMOGLOBIN 30 pg (27.0-31.0); MEAN CORPUSCULAR HGB CONC 33 g/dl (33.0-37.0); MEAN PLATELET VOLUME 9.5 fl (7.4-10.4); PLATELET COUNT 312 K/mm3 (130-400); RED BLOOD COUNT 4.25 M/mm3 (4.10-5.30); REDCELL DISTRIBUTION WIDTH-CV 13.2 % (11.5-14.5)
[2020-08-15 03:09] LABS: ALANINE AMINOTRANSFERASE 16 U/L (4-34); ALBUMIN 4.2 gm/dL (3.5-5.0); ALKALINE PHOSPHATASE 106 U/L (50-136); ANION GAP 10 mmol/L (7-16); AST,SGOT 20 U/L (15-37); BILIRUBIN,TOTAL 0.8 mg/dL (0.0-1.0); BLOOD UREA NITROGEN 9 mg/dL (7-17); C-REACTIVE PROTEIN 1.7 mg/dL (0.0-0.9); CALCIUM 9.2 mg/dL (8.4-10.2); CARBON DIOXIDE 27 mmol/L (22-30); CHLORIDE 100 mmol/L (98-107); CREATININE, serum 0.63 (0.52-1.25); GLUCOSE 99 mg/dL (74-106); POTASSIUM 3.9 mmol/L (3.4-5.0); SODIUM 137 mmol/L (137-145); TOTAL PROTEIN 7.8 gm/dL (6.4-8.2)
[2020-08-15 03:19] LABS: INR 1.1 (0.8-3.0); PROTHROMBIN TIME 12.3 SECONDS (9.7-12.8)
[2020-08-15 03:20] LABS: BAND 6 % (0-10); EOSINOPHIL 1 % (0-4); LYMPHOCYTE 6 % (20.0-51.0); NEUTROPHILS 85 % (42.0-75.2)
[2020-08-15 03:22] LABS: TROPONIN-I < 0.012 ng/mL (0.000-0.035)
[2020-08-15 03:22] LABS: PLATELET ESTIMATE NORMAL (NORMAL)
[2020-08-15 05:48] VITALS: BP 125/83; PULSE 89
[2020-08-16] MEDS ORDERED: TOPAMAX 100MG100 M1 PO (22:10)
== END 2020-08-15 05:52 | disposition home or self-care (01) ==
LOC: COL.ER 01:26
PROVIDERS: Emergency Medicine
DX: A08.4 Viral intestinal infection, unspecified (principal); R00.0 Tachycardia, unspecified; D72.829 Elevated white blood cell count, unspecified; I10 Essential (primary) hypertension; E11.9 Type 2 diabetes mellitus without complications; Z20.822 Contact with and (suspected) exposure to COVID-19; Z88.8 Allergy status to other drugs, medicaments and biological substances; Z79.899 Other long term (current) drug therapy; Z79.84 Long term (current) use of oral hypoglycemic drugs
CPT/HCPCS: J1885; J7120

== ENCOUNTER 2020-08-15 18:43 | Emergency (ER) | payer MEDICAID ==
[~2020-08-15] VITALS: Ht 170.2 cm; Wt 100.0 kg
[2020-08-15 22:59] LABS: BASO % 0.3 % (0.0-2.0); EOS % 0.2 % (0-4.0); GRAN # 11.6 (1.4-6.5); GRAN % 87.6 % (42.2-75.2); HEMATOCRIT 37.5 % (37.0-47.0); HEMOGLOBIN 12.5 g/dl (12.5-16.0); LYMPH # 0.8 (1.2-3.4); LYMPH % 5.8 % (20.0-51.0); MEAN CELL VOLUME 90 fl (80.0-100.0); MEAN CORPUSCULAR HEMOGLOBIN 30 pg (27.0-31.0); MEAN CORPUSCULAR HGB CONC 33 g/dl (33.0-37.0); MEAN PLATELET VOLUME 9.2 fl (7.4-10.4); MONO # 0.7 (0.1-0.6); MONO % 5.6 % (1.7-9.3); PLATELET COUNT 276 K/mm3 (130-400); RED BLOOD COUNT 4.18 M/mm3 (4.10-5.30); REDCELL DISTRIBUTION WIDTH-CV 13.2 % (11.5-14.5)
[2020-08-15 23:15] LABS: BILIRUBIN,TOTAL 1.3 mg/dL (0.0-1.0); C-REACTIVE PROTEIN 5.5 mg/dL (0.0-0.9); CALCIUM 8.7 mg/dL (8.4-10.2); CREATININE, serum 0.58 (0.52-1.25); POTASSIUM 4.1 mmol/L (3.4-5.0); TOTAL PROTEIN 7.7 gm/dL (6.4-8.2)
[2020-08-16 03:00] VITALS: BP 118/60; PULSE 99; TEMP 98.2
[2020-08-16] MEDS ORDERED: TOPAMAX 100MG100 M1 PO (22:10)
== END 2020-08-16 00:55 | disposition home or self-care (01) ==
LOC: COL.ER 18:43
PROVIDERS: Emergency Medicine
DX: B34.9 Viral infection, unspecified (principal); G43.909 Migraine, unspecified, not intractable, without status migrainosus; Z88.8 Allergy status to other drugs, medicaments and biological substances
CPT/HCPCS: J1885; J2270; J2405; J7030

== ENCOUNTER 2020-08-16 15:43 | Inpatient (IN) | payer MEDICAID ==
[~2020-08-16] VITALS: Ht 170.2 cm; Wt 100.0 kg
[2020-08-16 17:35] LABS: BASO % 0.2 % (0.0-2.0); EOS % 0.1 % (0-4.0); GRAN # 14.7 (1.4-6.5); GRAN % 87.9 % (42.2-75.2); HEMOGLOBIN 11.9 g/dl (12.5-16.0); LYMPH # 0.7 (1.2-3.4); LYMPH % 4.4 % (20.0-51.0); MEAN CELL VOLUME 90 fl (80.0-100.0); MEAN CORPUSCULAR HEMOGLOBIN 30 pg (27.0-31.0); MEAN CORPUSCULAR HGB CONC 33 g/dl (33.0-37.0); MEAN PLATELET VOLUME 9.3 fl (7.4-10.4); MONO # 1.2 (0.1-0.6); PLATELET COUNT 273 K/mm3 (130-400); RED BLOOD COUNT 3.99 M/mm3 (4.10-5.30); REDCELL DISTRIBUTION WIDTH-CV 13.3 % (11.5-14.5)
[2020-08-16 17:36] LABS: HEMATOCRIT 35.8 % (37.0-47.0)
[2020-08-16 17:49] LABS: ALBUMIN 3.8 gm/dL (3.5-5.0); BILIRUBIN,TOTAL 1.8 mg/dL (0.0-1.0); CALCIUM 8.2 mg/dL (8.4-10.2); CREATININE, serum 0.63 (0.52-1.25); POTASSIUM 3.7 mmol/L (3.4-5.0); TOTAL PROTEIN 7.3 gm/dL (6.4-8.2)
[2020-08-16 18:23] LABS: C-REACTIVE PROTEIN 14.2 mg/dL (0.0-0.9)
[2020-08-16 18:29] LABS: ERYTHROCYTE SEDIMENTATION RATE 38 mm/hr (0-20)
[2020-08-16 19:47] LABS: COLLECTION METHOD CLEAN CATCH
[2020-08-16 19:59] LABS: PH 6 (5-8); URINE APPEARANCE Hazy; URINE BACTERIA Rare /hpf; URINE BILIRUBIN Negative (NEGATIVE); URINE BLOOD Negative (NEGATIVE); URINE COLOR Straw; URINE GLUCOSE Negative (NEGATIVE); URINE KETONE Negative (NEGATIVE); URINE LEUKOCYTE ESTERASE Trace (NEGATIVE); URINE NITRATE Negative (NEGATIVE); URINE PROTEIN(semi-quant) Negative (NEGATIVE); URINE RBC 0-2 /hpf; URINE UROBILINOGEN Negative (NEGATIVE)
[2020-08-16 21:07] LABS: AMYLASE 87 U/L (30-110); LIPASE 56 U/L (23-300)
[2020-08-16] MEDS ORDERED: TOPAMAX 100MG100 M1 PO (22:10)
--- NOTE | 2020-08-16 23:17 | NUR ---
Patient arrived to medical unit from ER at approximately 2230. Patient very sleepy, and wanting to be left alone. Not wanting this nurse to assess her at this time. Tried to complete med rec with patient, but not answering questions, and stated that she already went over it with someone else. Patient did allow IV fluids to be started and took Topamax. Will try to assess later. Bed alarm on. Call light within reach. Denies having questions, needs, or concerns. Encouraged to call if she needs anything.
[2020-08-17] VITALS (10 sets, daily range): BP systolic 95–149; BP diastolic 56–84; PULSE 85–125; TEMP 97.6–101.9
--- NOTE | 2020-08-17 00:45 | NUR ---
Patient's temperature 101.1. Too soon to give PRN APAP. HR 125. Called JOHANNA Jorgensen. New order for one time dose of Motrin 400 mg po now. Also, place patient on telemetry. Given Motrin at this time and telemetry put on.
--- NOTE | 2020-08-17 02:18 | NUR ---
Patient's temp 101.9 axillary. Given PRN APAP at this time. Patient sweating and hot. Turned on air conditioner on in room. Given cool rag and ice pack.
--- NOTE | 2020-08-17 03:25 | NUR ---
Patient complaining of level 10 pain to abdomen and head. Call placed to JOHANNA Jorgensen, and new order received for PRN Dilaudid. Given at this time. IV fluids also increased to 150 mls/hr per orders.
[2020-08-17 04:31] LABS: BASO % 0.2 % (0.0-2.0); EOS # 0.1 (0.0-0.7); EOS % 0.3 % (0-4.0); GRAN # 14.8 (1.4-6.5); GRAN % 88.5 % (42.2-75.2); HEMOGLOBIN 11.5 g/dl (12.5-16.0); LYMPH # 0.7 (1.2-3.4); MEAN CELL VOLUME 90 fl (80.0-100.0); MEAN CORPUSCULAR HEMOGLOBIN 30 pg (27.0-31.0); MEAN CORPUSCULAR HGB CONC 34 g/dl (33.0-37.0); MEAN PLATELET VOLUME 9.8 fl (7.4-10.4); MONO # 1.1 (0.1-0.6); MONO % 6.5 % (1.7-9.3); PLATELET COUNT 247 K/mm3 (130-400); RED BLOOD COUNT 3.83 M/mm3 (4.10-5.30); REDCELL DISTRIBUTION WIDTH-CV 13.5 % (11.5-14.5)
[2020-08-17 04:33] LABS: HEMATOCRIT 34.3 % (37.0-47.0)
[2020-08-17 04:46] LABS: CREATININE, serum 0.64 (0.52-1.25); POTASSIUM 3.3 mmol/L (3.4-5.0)
--- NOTE | 2020-08-17 05:38 | NUR ---
Patient called requesting pain medication. Patient's most recent blood pressure was 90s/50s. Went to check BP to see if it has gone up prior to giving more PRN Dilaudid. Upon entering patient's room, patient seemed to be resting in bed with eyes closed. Said patient's name multiple times before patient opened eyes and verbally responded. Stated that she was ready for more pain medication. Rated pain at a 7. Rechecked BP with a result of90s/50s again. Explained to patient that we wanted BP to be up a little more prior to giving the pain medication because we did not want to drop her BP anymore. Voiced understanding. Patient afebrile at this time. IV fluids continue per orders. Patient resting in bed with call light within reach. Continues to seem drowsy at this time.
--- NOTE | 2020-08-17 08:00 | NUR ---
Patient sitting up in bed working on breakfast tray. A&Ox3, drowsy and reporting being tired. Pain in right lower back, pain medication requested. Nurse informed the patient that she cannot get opiods r/t low BP. Patient verbalized an understanding. VSS. IV CDI, fluids infusing. No further needs expressed from the patient. Call light within reach
--- NOTE | 2020-08-17 12:13 | NUR ---
SW met with patient to complete intake. Patient states that she lives at home with family. POC is her mother Emily [phone] who is also documented as her DPOA-HC. Patient states that she does not utilize DME and is independent with ADL's. Patient states that her PCP is at [facility] and not exactly sure of the exact name, pharmacy is at [facility] and provides that she is able to afford her medications. Patient states that she plans to go back to her home in [place]. Patient did not have any questions or any further concerns at this time. SW will continue to follow.
--- NOTE | 2020-08-17 16:00 | NUR ---
Nurse went to check patients WBG and the patient was in bed shivering, stating that she was cold. VS assessed, VSS. Nurse gave the patient a warm blanket and will continue to assess. Daughter was at the bedside and nurse updated. Call light within reach.
--- NOTE | 2020-08-17 18:20 | NUR ---
Patient resting in bed. Denies fever and chills, states that she is still a little cold. Temperature assessed 98.9 oral. Denies pain in back, reports a headache. 3 warm blankets on patient. Nurse assisted patient to the bathroom and patient reported being dizzy. Patient sitting up in bed and wants to eat dinner. A&Ox3. IV CDI, IV fluids infusing. No further needs expressed from the patient. Call light within reach
--- NOTE | 2020-08-17 19:00 | NUR ---
Received report from Emily. Patient states she feels cold. Emily rechecked her temp but she is afebrile. Couple blankets on top of her. With IV on left AC infusing NS at 75ml/hr. Will continue to monitor patient.
--- NOTE | 2020-08-17 20:10 | NUR ---
Rechecked on patient's temp, she is at 99.9F. She complains of headache as well. She is warm to touch and her face is flushed. Tylenol given. Will recheck patient again.
--- NOTE | 2020-08-17 21:52 | NUR ---
Rechecked patient's temp, she is now at 100.3F. She complains of mid chest pain, scoring 9/10. She reports pain when she inhales. She states she had this chest pain few days ago. Vital signs taken, BP 121/73, SPO2 at 98%. Updated Joslyn LIGHT via phone call. She ordered EKG. Will give Dilaudid. Informed patient regarding chest x-ray result done yesterday.
[2020-08-18] VITALS (9 sets, daily range): BP systolic 96–135; BP diastolic 63–78; PULSE 84–113; TEMP 97.6–99.9
--- NOTE | 2020-08-18 04:30 | NUR ---
Patient called saying she feels really hot and sweating. Checked her temp and she was 99.9F. Noticed her left forearm is warm to touch, with redness and she said it feels numb. Checked on her right arm and it is warm to touch as well but no pain and redness noted. Called Sheridan MORALES to recheck the arm with me. IV site on left AC flushes well with backflow. No redness surrounding the IV. Called Joslyn LIGHT and she went in to check the patient. She ordered to stop the fluids and remove the IV. She reinserted a new IV on her right forearm G22 and right AC G20. Elevated left arm with two pillows. Dilaudid given for pain on her back. Patient will have venous duplex in the morning.
[2020-08-18 06:39] LABS: BASO % 0.2 % (0.0-2.0); EOS # 0.1 (0.0-0.7); GRAN % 82.6 % (42.2-75.2); HEMOGLOBIN 10.8 g/dl (12.5-16.0); LYMPH # 1.2 (1.2-3.4); LYMPH % 8.6 % (20.0-51.0); MEAN CELL VOLUME 90 fl (80.0-100.0); MEAN CORPUSCULAR HEMOGLOBIN 30 pg (27.0-31.0); MEAN CORPUSCULAR HGB CONC 33 g/dl (33.0-37.0); MEAN PLATELET VOLUME 9.8 fl (7.4-10.4); PLATELET COUNT 299 K/mm3 (130-400); REDCELL DISTRIBUTION WIDTH-CV 13.4 % (11.5-14.5)
[2020-08-18 06:47] LABS: HEMATOCRIT 32.5 % (37.0-47.0)
[2020-08-18 06:50] LABS: ALBUMIN 3.3 gm/dL (3.5-5.0); BILIRUBIN,TOTAL 0.7 mg/dL (0.0-1.0); CALCIUM 8.3 mg/dL (8.4-10.2); CREATININE, serum 0.66 (0.52-1.25); MAGNESIUM 1.9 mg/dL (1.6-2.3); TOTAL PROTEIN 6.8 gm/dL (6.4-8.2)
--- NOTE | 2020-08-18 08:16 | NUR ---
PT REPORTS BEING DIZZY WHEN GETTING UP, EDUCATED PT TO USE CALL LIGHT WHEN AMBULATING FOR PT SAFETY. PT HAS EYES HALF OPEN WHEN TALKING AND SOUNDS VERY TIRED. REPORTS THE PAIN WHEN SHE INHALES MAKES IT HARD TO BREATH AND PAIN IN R FLANK. PT REPORTS PAIN 7/10, IBUPROFEN GIVEN, EDUCATED ON LOW BP IN RELATION TO HOLDING DILAUDID. PT MEDICATIONS GIVEN, IV FLUIDS INFUSING. RECIEVED REPORT THAT LUE WAS RED AND PAINFUL, WHEN ASSESSING LUE WAS NOT RED AND PT DENIED PAIN IN EXTREMITY. PT REPORTS IT LOOKS A LOT BETTER. PT ASSESSMENT PERFORMED, IBUPROFEN GIVEN FOR PAIN, IV SITES CDI W/O ERYTHEMA. PT AOX4, NO OTHER NEEDS AT THIS TIME.
--- NOTE | 2020-08-18 17:26 | NUR ---
PT PLEASANT, NEEDING PAIN MANAGEMENT INTERMITTANTLY, PT NOT AMBULATING FREQUENTLY, REPORTS LAST BM TUESDAY. BS HYPOACTIVE. HAS BEEN NAPPING MOST OF DAY, NO OTHER NEEDS
--- NOTE | 2020-08-19 01:26 | NUR ---
Shift assessment completed. Patient alert and oriented. Patient denies chest pain, SOB, N/V, headache, or dizziness. Patient reports SOB and gets dizzy when she gets up from bed. VS stable. Breathing even and unlabored while at rest. Patient reports intermittent pain to her right lower back. Denies pain meds at this time. All scheduled meds given per MAY. Right AC IV site and right forearm IV site infiltrated. Removed IV from right AC and right forearm. [employer] Skye inserted 22G IV to left hand. Call light within reach. Will continue to monitor.
[2020-08-19 03:59] VITALS: BP 140/83; PULSE 91; TEMP 98.4
--- NOTE | 2020-08-19 05:07 | NUR ---
PRN Morphine given twice over the night for right lower back pain. Patient remains afebrile throughout the night. Call light within reach.
[2020-08-19 06:49] LABS: BASO # 0.1 (0.0-0.2); BASO % 0.5 % (0.0-2.0); EOS # 0.3 (0.0-0.7); EOS % 3.1 % (0-4.0); GRAN # 7.6 (1.4-6.5); GRAN % 75.8 % (42.2-75.2); HEMATOCRIT 36.7 % (37.0-47.0); LYMPH # 1.4 (1.2-3.4); LYMPH % 13.7 % (20.0-51.0); MEAN CELL VOLUME 90 fl (80.0-100.0); MEAN CORPUSCULAR HEMOGLOBIN 29 pg (27.0-31.0); MEAN CORPUSCULAR HGB CONC 33 g/dl (33.0-37.0); MEAN PLATELET VOLUME 9.6 fl (7.4-10.4); MONO # 0.6 (0.1-0.6); MONO % 6.3 % (1.7-9.3); PLATELET COUNT 362 K/mm3 (130-400); RED BLOOD COUNT 4.09 M/mm3 (4.10-5.30); REDCELL DISTRIBUTION WIDTH-CV 13.5 % (11.5-14.5)
[2020-08-19 07:02] LABS: CALCIUM 8.8 mg/dL (8.4-10.2); CREATININE, serum 0.71 (0.52-1.25); POTASSIUM 4.1 mmol/L (3.4-5.0)
[2020-08-19 07:50] VITALS: BP 120/75; PULSE 94; TEMP 98.1
--- NOTE | 2020-08-19 08:20 | NUR ---
PT REPORTING ABD PAIN 09/04, REQUESTED MORPHINE, EDUCATED THAT SHE MIGHT NOT GET TO DISCHARGE IF SHE KEEPS RECIEVING NARCOTICS, PT STILL REQUESTED IT, TOO SOON FOR IBUPROFEN OR TYLENOL. PT VERY DROWSY, ORIENTED X4, ASSESSMENT PERFORMED, OTHER MEDICATIONS GIVEN, IV SITE CDI W/O ERYTHEMA, NO OTHER NEEDS.
--- NOTE | 2020-08-19 08:30 | NUR ---
PT REPORTS NO BM SINCE TUESDAY, NAOMY TOMAS NOTIFIED FOR MIRALAX
[2020-08-19] MEDS ORDERED: OMNICEF 300MG300 MG PO (09:39)
[2020-08-19 11:49] VITALS: BP 134/69; PULSE 92; TEMP 97.9
--- NOTE | 2020-08-19 12:15 | NUR ---
DISCHARGE EDUCATION PROVIDED, NO QUESTIONS AT THIS TIME, IV REMOVED, PT ESCORTED OUT ER ENTRANCE VIA WC, NO OTHER NEEDS AT THIS TIME.
== END 2020-08-19 12:10 | disposition home or self-care (01) | DRG 872 ==
LOC: COL.ER 15:43 → MEDICAL 20:40
PROVIDERS: Nurse Practitioner Family; Physician Assistant; ADMIT Student in an Organized Health Care Education/Training Program
DX: A41.9 Sepsis, unspecified organism (principal); N12 Tubulo-interstitial nephritis, not specified as acute or chronic; E87.1 Hypo-osmolality and hyponatremia; E87.2 Acidosis; F31.9 Bipolar disorder, unspecified; D64.9 Anemia, unspecified; E87.6 Hypokalemia; E11.9 Type 2 diabetes mellitus without complications; F90.9 Attention-deficit hyperactivity disorder, unspecified type; F41.9 Anxiety disorder, unspecified; Z20.822 Contact with and (suspected) exposure to COVID-19; R07.89 Other chest pain; I80.9 Phlebitis and thrombophlebitis of unspecified site; E87.8 Other disorders of electrolyte and fluid balance, not elsewhere classified; Z90.710 Acquired absence of both cervix and uterus; Z98.51 Tubal ligation status; Z90.89 Acquired absence of other organs
CPT/HCPCS: 99223-AI; 99233-AI; 99239; J0696; J1170; J1650; J1885; J2270; J7030; Q9967

== ENCOUNTER 2020-10-01 20:01 | Emergency (ER) | payer MEDICAID ==
[~2020-10-01] VITALS: Ht 170.2 cm; Wt 93.2 kg
[~2020-10-01 20:01] MED LIST changes: +OMNICEF 300MG300 MG PO; +TOPAMAX 100MG100 M1 PO
[2020-10-01 20:07] VITALS: TEMP 98.7
[2020-10-01 21:32] LABS: BASO % 0.4 % (0.0-2.0); EOS # 0.1 (0.0-0.7); EOS % 1.3 % (0-4.0); GRAN # 6.9 (1.4-6.5); GRAN % 67.3 % (42.2-75.2); HEMATOCRIT 39.2 % (37.0-47.0); HEMOGLOBIN 12.8 g/dl (12.5-16.0); LYMPH # 2.5 (1.2-3.4); LYMPH % 24.8 % (20.0-51.0); MEAN CELL VOLUME 90 fl (80.0-100.0); MEAN CORPUSCULAR HEMOGLOBIN 29 pg (27.0-31.0); MEAN CORPUSCULAR HGB CONC 33 g/dl (33.0-37.0); MEAN PLATELET VOLUME 9.9 fl (7.4-10.4); MONO # 0.6 (0.1-0.6); MONO % 5.9 % (1.7-9.3); PLATELET COUNT 338 K/mm3 (130-400); RED BLOOD COUNT 4.37 M/mm3 (4.10-5.30); REDCELL DISTRIBUTION WIDTH-CV 13.6 % (11.5-14.5)
[2020-10-01 21:48] LABS: ALANINE AMINOTRANSFERASE 16 U/L (4-34); ALBUMIN 4.6 gm/dL (3.5-5.0); ALKALINE PHOSPHATASE 94 U/L (50-136); ANION GAP 5 mmol/L (7-16); AST,SGOT 20 U/L (15-37); BILIRUBIN,TOTAL 1.2 mg/dL (0.0-1.0); BLOOD UREA NITROGEN 11 mg/dL (7-17); CALCIUM 9.9 mg/dL (8.4-10.2); CARBON DIOXIDE 26 mmol/L (22-30); CHLORIDE 106 mmol/L (98-107); CREATININE, serum 1.05 (0.52-1.25); GLUCOSE 101 mg/dL (74-106); POTASSIUM 3.9 mmol/L (3.4-5.0); SODIUM 137 mmol/L (137-145); TOTAL PROTEIN 8.5 gm/dL (6.4-8.2)
[2020-10-01 21:49] LABS: C-REACTIVE PROTEIN < 0.5 mg/dL (0.0-0.9)
[2020-10-01 22:03] LABS: TROPONIN-I < 0.012 ng/mL (0.000-0.035)
[2020-10-01 23:53] LABS: COLLECTION METHOD CLEAN CATCH
[2020-10-02 00:01] LABS: MUCOUS Present /lpf; PH 6 (5-8); SQUAMOUS EPITHELIAL 20-50 /hpf; URINE APPEARANCE Cloudy; URINE BACTERIA Rare /hpf; URINE BILIRUBIN Negative (NEGATIVE); URINE BLOOD Negative (NEGATIVE); URINE COLOR Yellow; URINE GLUCOSE Negative (NEGATIVE); URINE KETONE Negative (NEGATIVE); URINE LEUKOCYTE ESTERASE 1+ (NEGATIVE); URINE NITRATE Negative (NEGATIVE); URINE PROTEIN(semi-quant) Negative (NEGATIVE)
[2020-10-02 00:34] VITALS: BP 148/70; PULSE 76
== END 2020-10-02 00:34 | disposition home or self-care (01) ==
LOC: COL.ER 20:01
PROVIDERS: Nurse Practitioner
DX: R00.2 Palpitations (principal); I10 Essential (primary) hypertension; E11.9 Type 2 diabetes mellitus without complications; Z79.84 Long term (current) use of oral hypoglycemic drugs; Z79.899 Other long term (current) drug therapy

== ENCOUNTER → 2020-10-08 | Outpatient (CLI) | payer MEDICAID ==
[~2020-10-08] MED LIST changes: +VIVLODEX5 MG PO
== END ==
LOC: MC.RAD 11:00
DX: Z12.31 Encounter for screening mammogram for malignant neoplasm of breast (principal); Z80.3 Family history of malignant neoplasm of breast

== ENCOUNTER 2020-12-21 08:04 | Emergency (ER) | payer MEDICAID ==
[~2020-12-21] VITALS: Ht 167.6 cm; Wt 100.0 kg
[~2020-12-21 08:04] MED LIST changes: -VIVLODEX5 MG PO
[2020-12-21 08:10] VITALS: TEMP 98.3
[2020-12-21 09:15] LABS: BASO % 0.2 % (0.0-2.0); EOS # 0.1 (0.0-0.7); EOS % 0.4 % (0-4.0); GRAN # 9.1 (1.4-6.5); GRAN % 79.1 % (42.2-75.2); HEMATOCRIT 38.8 % (37.0-47.0); LYMPH # 1.7 (1.2-3.4); LYMPH % 14.7 % (20.0-51.0); MEAN CELL VOLUME 90 fl (80.0-100.0); MEAN CORPUSCULAR HEMOGLOBIN 30 pg (27.0-31.0); MEAN CORPUSCULAR HGB CONC 34 g/dl (33.0-37.0); MEAN PLATELET VOLUME 9.8 fl (7.4-10.4); MONO # 0.6 (0.1-0.6); MONO % 5.3 % (1.7-9.3); PLATELET COUNT 312 K/mm3 (130-400); REDCELL DISTRIBUTION WIDTH-CV 13.1 % (11.5-14.5)
[2020-12-21 09:33] LABS: C-REACTIVE PROTEIN 0.5 mg/dL (0.00-0.50); CALCIUM 9.1 mg/dL (8.4-10.2); CREATININE, serum 0.79 mg/dL (0.57-1.11); POTASSIUM 3.6 mmol/L (3.5-4.5); TOTAL PROTEIN 7.7 gm/dL (6.2-8.1)
[2020-12-21 09:54] LABS: COLLECTION METHOD CLEAN CATCH
[2020-12-21 10:00] LABS: PH 6 (5-8); URINE APPEARANCE Clear; URINE BACTERIA None Seen /hpf; URINE BILIRUBIN Negative (NEGATIVE); URINE BLOOD Negative (NEGATIVE); URINE COLOR Straw; URINE GLUCOSE Negative (NEGATIVE); URINE KETONE Negative (NEGATIVE); URINE LEUKOCYTE ESTERASE Negative (NEGATIVE); URINE NITRATE Negative (NEGATIVE); URINE PROTEIN(semi-quant) Negative (NEGATIVE); URINE RBC 0-2 /hpf; URINE UROBILINOGEN Negative (NEGATIVE)
[2020-12-21] MEDS ORDERED: ZOFRAN ODT4 MG PO (11:28)
[2020-12-21 11:55] VITALS: BP 121/79; PULSE 89
== END 2020-12-21 12:00 | disposition home or self-care (01) ==
LOC: COL.ER 08:04
PROVIDERS: Family Medicine
DX: K52.9 Noninfective gastroenteritis and colitis, unspecified (principal); D72.829 Elevated white blood cell count, unspecified; I10 Essential (primary) hypertension; E11.9 Type 2 diabetes mellitus without complications; F31.9 Bipolar disorder, unspecified; F41.9 Anxiety disorder, unspecified; F90.9 Attention-deficit hyperactivity disorder, unspecified type; Z20.822 Contact with and (suspected) exposure to COVID-19; Z79.84 Long term (current) use of oral hypoglycemic drugs; Z79.899 Other long term (current) drug therapy
CPT/HCPCS: J1885; J2405; J7120

== ENCOUNTER 2021-01-11 13:23 | Emergency (ER) | payer MEDICAID ==
[~2021-01-11] VITALS: Ht 170.2 cm; Wt 100.0 kg
[2021-01-11 13:29] VITALS: TEMP 98.1
[2021-01-11] MEDS ORDERED: NORCO 325 MG-51 TAB PO (15:33)
[2021-01-11] MEDS ORDERED: PREDNISONE20 MG PO (15:33)
[2021-01-11 15:45] VITALS: BP 135/80; PULSE 91
== END 2021-01-11 15:46 | disposition home or self-care (01) ==
LOC: COL.ER 13:23
DX: M25.561 Pain in right knee (principal); I10 Essential (primary) hypertension; E11.9 Type 2 diabetes mellitus without complications; Z79.899 Other long term (current) drug therapy
CPT/HCPCS: J7512

== ENCOUNTER 2021-01-23 08:02 | Emergency (ER) | payer MEDICAID ==
[~2021-01-23] VITALS: Ht 170.2 cm; Wt 100.0 kg
[2021-01-23] MEDS ORDERED: VIVLODEX5 MG PO (10:31)
[2021-01-23 11:30] VITALS: BP 136/80; PULSE 81; TEMP 97.8
== END 2021-01-23 11:26 | disposition home or self-care (01) ==
LOC: COL.ER 08:02
DX: G89.18 Other acute postprocedural pain (principal); I10 Essential (primary) hypertension; E11.9 Type 2 diabetes mellitus without complications; Z87.39 Personal history of other diseases of the musculoskeletal system and connective tissue; Z79.84 Long term (current) use of oral hypoglycemic drugs; Z79.899 Other long term (current) drug therapy

== ENCOUNTER 2021-04-01 02:13 | Emergency (ER) | payer MEDICAID ==
[~2021-04-01] VITALS: Ht 170.2 cm; Wt 100.0 kg
[~2021-04-01 02:13] MED LIST changes: +VIVLODEX5 MG PO
[2021-04-01 02:23] VITALS: TEMP 97.9
[2021-04-01] MEDS ORDERED: BACTRIM DS 8001 TAB PO (03:30)
[2021-04-01 03:43] VITALS: BP 138/96; PULSE 77
== END 2021-04-01 03:43 | disposition home or self-care (01) ==
LOC: COL.ER 02:13
DX: L02.412 Cutaneous abscess of left axilla (principal); F17.290 Nicotine dependence, other tobacco product, uncomplicated; I10 Essential (primary) hypertension; E11.9 Type 2 diabetes mellitus without complications; Z79.899 Other long term (current) drug therapy; Z79.84 Long term (current) use of oral hypoglycemic drugs

== ENCOUNTER 2021-08-26 04:49 | Emergency (ER) | payer MEDICAID ==
[~2021-08-26] VITALS: Ht 170.2 cm; Wt 59.1 kg
[2021-08-26 04:55] VITALS: TEMP 97.8
[2021-08-26 06:13] LABS: BASO % 0.4 % (0.0-2.0); EOS # 0.2 K/mm3 (0.0-0.7); EOS % 2.1 % (0.0-4.0); GRAN # 7.2 K/mm3 (1.4-6.5); GRAN % 73.6 % (42.2-75.2); HEMATOCRIT 35.8 % (37.0-47.0); HEMOGLOBIN 11.6 g/dl (12.5-16.0); LYMPH # 1.7 K/mm3 (1.2-3.4); LYMPH % 17.2 % (20.0-51.0); MEAN CELL VOLUME 93 fl (80.0-100.0); MEAN CORPUSCULAR HEMOGLOBIN 30 pg (27-31); MEAN CORPUSCULAR HGB CONC 32 g/dl (33.0-37.0); MEAN PLATELET VOLUME 9.7 fl (7.4-10.4); MONO # 0.6 K/mm3 (0.1-0.6); MONO % 6.3 % (1.7-9.3); PLATELET COUNT 349 K/mm3 (130-400); RED BLOOD COUNT 3.87 M/mm3 (4.10-5.30); REDCELL DISTRIBUTION WIDTH-CV 13.3 % (11.5-14.5)
[2021-08-26 06:17] LABS: ALBUMIN 3.4 gm/dL (3.5-5.0); BILIRUBIN,TOTAL 0.8 mg/dL (0.2-1.2); CALCIUM 8.4 mg/dL (8.4-10.2); CREATININE, serum 0.78 mg/dL (0.57-1.11); POTASSIUM 4.1 mmol/L (3.5-4.5); TOTAL PROTEIN 6.9 gm/dL (6.2-8.1)
[2021-08-26 06:54] VITALS: BP 117/79; PULSE 101
[2021-08-26] MEDS ORDERED: LASIX 20MG TABL20 MG PO (06:55)
== END 2021-08-26 07:06 | disposition home or self-care (01) ==
LOC: COL.ER 04:49
PROVIDERS: Emergency Medicine
DX: M79.604 Pain in right leg (principal); M79.605 Pain in left leg; I10 Essential (primary) hypertension; R60.0 Localized edema; Z91.14 Patient's other noncompliance with medication regimen; Z28.310 Unvaccinated for COVID-19

== ENCOUNTER 2021-09-14 14:10 | Emergency (ER) | payer MEDICAID ==
[~2021-09-14] VITALS: Ht 170.2 cm; Wt 100.0 kg
[~2021-09-14 14:10] MED LIST changes: +LASIX 20MG TABL20 MG PO
[2021-09-14 14:44] VITALS: BP 132/81; TEMP 97.8
[2021-09-14 18:07] VITALS: PULSE 78
== END 2021-09-14 18:08 | disposition home or self-care (01) ==
LOC: COL.ER 14:10
DX: U07.1 COVID-19 (principal); E66.9 Obesity, unspecified; Z86.39 Personal history of other endocrine, nutritional and metabolic disease; Z86.79 Personal history of other diseases of the circulatory system; Z28.310 Unvaccinated for COVID-19
CPT/HCPCS: J1885; Q0222

== ENCOUNTER 2021-10-15 09:30 | Outpatient (RCR) | payer MEDICAID | END 2021-10-25 | disposition home or self-care (01) | LOC: MKS.ESL.PT | DX: M25.562 Pain in left knee (principal); M25.561 Pain in right knee ==

== ENCOUNTER → 2022-01-13 | Outpatient (CLI) | payer MEDICAID | LOC: MC.RAD 11:28 | DX: R92.0 Mammographic microcalcification found on diagnostic imaging of breast (principal) ==

== ENCOUNTER → 2022-01-20 | Outpatient (CLI) | payer MEDICAID | LOC: MC.RAD 08:27 | DX: R92.0 Mammographic microcalcification found on diagnostic imaging of breast (principal) | CPT/HCPCS: 30635; 30637 ==

== ENCOUNTER 2023-03-30 21:12 | Emergency (ER) | payer SELFPAY ==
[~2023-03-30] VITALS: Ht 170.2 cm; Wt 100.0 kg
[2023-03-30 21:18] VITALS: TEMP 97.8
[2023-03-30 23:47] VITALS: BP 117/82; PULSE 80
== END 2023-03-30 23:51 | disposition home or self-care (01) ==
LOC: COL.ER 21:12
DX: R51.9 Headache, unspecified (principal); Z86.69 Personal history of other diseases of the nervous system and sense organs
CPT/HCPCS: J0780; J1200; J7030

== ENCOUNTER 2023-04-11 14:17 | Emergency (ER) | payer SELFPAY ==
[~2023-04-11] VITALS: Ht 170.2 cm; Wt 100.0 kg
[2023-04-11 16:00] VITALS: BP 124/81; PULSE 89; TEMP 97.8
== END 2023-04-11 16:00 | disposition home or self-care (01) ==
LOC: COL.ER 14:17
DX: U07.1 COVID-19 (principal); R05.9 Cough, unspecified; R50.9 Fever, unspecified; R09.81 Nasal congestion; M54.6 Pain in thoracic spine; Z28.310 Unvaccinated for COVID-19

== ENCOUNTER 2023-10-22 15:34 | Emergency (ER) | payer SELFPAY ==
[~2023-10-22] VITALS: Ht 170.2 cm; Wt 100.0 kg
[~2023-10-22 15:34] MED LIST changes: +ATARAX 25MG25 MG/TAB PO; +PREDNISONE10 MG PO
[2023-10-22 15:43] VITALS: TEMP 98.2
[2023-10-22] MEDS ORDERED: CEPHALEXIN500 M1 PO (16:12)
[2023-10-22] MEDS ORDERED: Cephalexin 500 MG CAP PO ONE (16:15)
[2023-10-22 16:42] VITALS: BP 133/84; PULSE 74
== END 2023-10-22 16:42 | disposition home or self-care (01) ==
LOC: COL.ER 15:34
DX: L03.116 Cellulitis of left lower limb (principal); L03.115 Cellulitis of right lower limb